=== PATIENT | male | born 1975 | race Caucasian/White ===

== ENCOUNTER 2016-06-06 06:46 | Emergency (ER) | payer OTHER ==
[2016-06-06 07:04] VITALS: TEMP 98; BMI 32.1
[2016-06-06 07:25] LABS: LEUKOCYTES/URINE NEG (NEGATIVE); NITRITE/URINE NEG (NEGATIVE); RBC/URINE 0-2 (0-2); URINE OCCULT BLOOD NEG (NEG/TRACE); WBC/URINE 0-2 (0-2)
[2016-06-06] MEDS ORDERED: ONDANSETRON HCL 4 MG/2 ML VIAL ONE (07:36)
[2016-06-06] MEDS ORDERED: MORPHINE 4 MG/ML INJECTION IV ONE (07:41)
[2016-06-06] MEDS ORDERED: NS 1,000 ML IV ONE ×2 (07:41)
[2016-06-06 07:42] LABS: AUTOMATED BASOPHIL 0.8 % (0-2); AUTOMATED EOSINOPHIL 7.5 % (0-5); AUTOMATED LYMPH 34.7 % (17-44); AUTOMATED MONOCYTE 9.3 % (3-10); AUTOMATED NEUTROPHIL 47.7 % (45-76); MPV 7.8 fL (7.4-10.4)
--- NOTE | 2016-06-06 07:46 | EDPRACDOC ---
- General Information Chief Complaint: Male Urogenital Problems Stated Complaint: KIDNEY PAIN Time Seen by Provider: 06/06/16 07:41 Information Source: Patient Mode Of Arrival: Car Home Medications: Home Medications Diazepam [Valium] 5 mg PO Q6 #10 tablet 06/06/16 Ibuprofen Tablet [Motrin] 800 mg PO TID #30 tab 06/06/16 Mometasone Furoate [Asmanex] 220 mcg IH DAILY 06/06/16 Prednisone [Deltasone, Orasone] 20 mg PO DAILY #12 tab 06/06/16 Ranitidine HCl [Zantac] 300 mg PO DAILY 06/06/16 Trazodone HCl [Desyrel] 50 mg PO QHS 06/06/16 Allergies/Adverse Reactions: Allergies Allergy/AdvReac Type Severity Reaction Status Date / Time codeine Allergy See Verified 06/06/16 07:04 Comments - History of Present Illness Onset: 2 weeks Pain Location: Reports: Right, Flank Pain Radiates To: Reports: None Pain Caused By: Reports: Spontaneous Relevant History: Reports: Urolithiasis (REMOTELY). Denies: Chronic back pain Pain Severity: Reports: Moderate Pain Quality: Reports: Aching, Burning Worsened By: Reports: Nothing Associated Signs and Symptoms: Reports: Nausea. Denies: Abdominal Pain, Dysuria , Vomiting ED Past Medical History - History Reviewed Yes Nurses notes reviewed and agree except as marked - Patient Medical History Respiratory History: Reports: Asthma Psychological History: Denies: Depression Surgical History: Reports: Appendectomy - Social Medical History Smoking Status: Never smoker ETOH: None Substance Abuse: None Lives In: Home EDM Review of Systems - Review of Systems ROS Negative Except as Marked: Yes All systems reviewed and were negative except as marked - Physical Exam Constitutional: Alert, Restless (PACING) Oriented to: Time, Person, Place Last recorded Vital Signs: Last Vital Signs Temp 98 F 06/06/16 06:59 Pulse 77 06/06/16 06:59 Resp 20 06/06/16 06:59 BP 147/101 H 06/06/16 06:59 Pulse Ox 98 06/06/16 06:59 Oxygen Pulse Oxygen Saturation 98 O2 Device Room Air Oxygen Flow Rate Fraction of Inspired Oxygen ( FIO2) - HEENT Head: Normal ( normocephalic) Eye Exam: Normal. negative: Edema, Pale Conjunctiva, Scleral Icterus Oropharynx: Normal. negative: Membranes Dry Neck: Normal - Respiratory/Cardiovascular Respiratory: Normal - CTA Cardiovascular: Normal - GI Auscultation: Normal Palpation: Normal Tenderness: Non tender. negative: Severe, Guarding, Rebound, Rigidity Blanchard's Sign: Negative - Musculoskeletal Back: CVA Tenderness (RIGHT-SIDED). negative: Thoracic Step-off, Lumbar Step- off, Thoracic TTP, Lumbar TTP Extremities: Normal - Integumentary Skin: Normal - Neurologic Memory Impaired: Normal Mood Description: Normal, Appropriate Thought: Coherent Perception: Normal - Results 06/06/16 07:30 06/06/16 07:30 WBC 8.8 xk/uL (3.8-10.8) 06/06/16 07:30 RBC 5.63 xM/uL (4.70-6.10) 06/06/16 07:30 Hgb 15.6 g/dL (14.0-18.0) 06/06/16 07:30 Hct 46.3 % (42-52) 06/06/16 07:30 MCV 82 fL (80-94) 06/06/16 07:30 MCH 27.7 pg (27-32) 06/06/16 07:30 MCHC 33.6 g/dl (33-36) 06/06/16 07:30 RDW 12.4 % (11.5-14.5) 06/06/16 07:30 Plt Count 218 xk/uL (130-400) 06/06/16 07:30 MPV 7.8 fL (7.4-10.4) 06/06/16 07:30 Neut % (Auto) 47.7 % (45-76) 06/06/16 07:30 Lymph % (Auto) 34.7 % (17-44) 06/06/16 07:30 [place] % (Auto) 9.3 % (3-10) 06/06/16 07:30 Eos % (Auto) 7.5 % (0-5) H 06/06/16 07:30 Baso % (Auto) 0.8 % (0-2) 06/06/16 07:30 Absolute Neuts (auto) 4.14 xk/uL (1.7-8.2) 06/06/16 07:30 Absolute Lymphs (auto) 2.99 xk/uL (0.65-4.75) 06/06/16 07:30 Urine Color Pale yellow 06/06/16 06:55 Urine Clarity Clear 06/06/16 06:55 Urine pH 6.0 (5.0-8.0) 06/06/16 06:55 Ur Specific [place] 1.020 (1.003-1.035) 06/06/16 06:55 Urine Protein Neg (NEG/TRACE) 06/06/16 06:55 Urine Glucose (UA) Neg (NEGATIVE) 06/06/16 06:55 Urine Ketones Neg (NEGATIVE) 06/06/16 06:55 Urine Occult Blood Neg (NEG/TRACE) 06/06/16 06:55 Urine Nitrite Neg (NEGATIVE) 06/06/16 06:55 Urine Bilirubin Neg (NEGATIVE) 06/06/16 06:55 Urine Urobilinogen <2.0 MG/DL (0-1) 06/06/16 06:55 Ur Leukocyte Esterase Neg (NEGATIVE) 06/06/16 06:55 Urine RBC 0-2 (0-2) 06/06/16 06:55 Urine WBC 0-2 (0-2) 06/06/16 06:55 Urine Mucus Occ (NEG/OCC) 06/06/16 06:55 Lab Results 06/06/16 06/06/16 07:30 06:55 WBC 8.8 RBC 5.63 Hgb 15.6 Hct 46.3 MCV 82 MCH 27.7 MCHC 33.6 RDW 12.4 Plt Count 218 MPV 7.8 Neut % (Auto) 47.7 Lymph % (Auto) 34.7 [place] % (Auto) 9.3 Eos % (Auto) 7.5 H Baso % (Auto) 0.8 Absolute Neuts (auto) 4.14 Absolute Lymphs (auto) 2.99 Urine Color Pale yellow Urine Clarity Clear Urine pH 6.0 Ur Specific [place] 1.020 Urine Protein Neg Urine Glucose (UA) Neg Urine Ketones Neg Urine Occult Blood Neg Urine Nitrite Neg Urine Bilirubin Neg Urine Urobilinogen <2.0 Ur Leukocyte Esterase Neg Urine RBC 0-2 Urine WBC 0-2 Urine Mucus Occ - Diagnostic Imaging Abdomen Image interpreted by: Radiologist Patient Name: DIANA TEJEDA LOC: ED : 1975 AGE: 41 Order Date:06/06/16 Date of Service:08/18 Report # [id number] Ord Physician: Padmini Beckham MD Exam # [id number] Emergency Physician: Padmini Beckham MD Exam(s): [id number] CT/CT UROGRAM CLINICAL DATA: RIGHT flank pain for 2 weeks. History of kidney stones. EXAM: CT ABDOMEN AND PELVIS WITHOUT CONTRAST TECHNIQUE: Multidetector CT imaging of the abdomen and pelvis was performed following the standard protocol without IV contrast. COMPARISON: None. FINDINGS: Lower chest: No acute findings. Hepatobiliary: No mass visualized on this un-enhanced exam. Hepatic steatosis is suspected. Pancreas: No mass or inflammatory process identified on this un-enhanced exam. Spleen: Within normal limits in size. Adrenals/Urinary Tract: No evidence of urolithiasis or hydronephrosis. No definite mass visualized on this un-enhanced exam. Stomach/Bowel: No evidence of obstruction, inflammatory process, or abnormal fluid collections. Diverticulosis without diverticulitis. Appendix is surgically absent. Vascular/Lymphatic: No pathologically enlarged lymph nodes. No evidence of abdominal aortic aneurysm. Reproductive: No mass or other significant abnormality. Other: None. Musculoskeletal: No suspicious bone lesions identified. Degenerative change lumbar spine. IMPRESSION: No nephro/urolithiasis or obstructive uropathy. Electronically Signed By: Sixto Adrian M.D. On: 06/06/2016 08:17 Electronically Signed By: Sixto Adrian MD Electronically Signed Date/Time: [id number] Dictate Date/Time: 06/06/16 08 Technologist: Jose Guadalupe Perez Transcribed By: Juan Transcribed Date/Time: 06/06/16 0817 - Departure Disposition: Home Condition: Good Final Diagnosis: Acute right flank pain Instructions: Non-pharmacological Pain Management Therapies for Adults (GEN), Abdominal Pain (ED), Back Exercises (ED) Education/Counseling Given To: Patient Education/Counseling Given Regarding: Diagnosis, Treatment, Prognosis Referrals: Pinky East MD [Primary Care Provider] - One Week Prescriptions: Diazepam [Valium] 5 mg PO Q6 #10 tablet Ibuprofen Tablet [Motrin] 800 mg PO TID #30 tab Prednisone [Deltasone, Orasone] 20 mg PO DAILY #12 tab
[2016-06-06 07:57] LABS: BLOOD UREA NITROGEN 17 MG/DL (9-20); CALCIUM 9.1 MG/DL (8.4-10.2); CALCULATED OSMOLALITY 273 MOs/Kg (270-290); CHLORIDE 103 mEq/L (98-107); GLUCOSE 106 MG/DL (70-99); SODIUM LEVEL 141 mEq/L (137-146); TOTAL PROTEIN 7.4 G/DL (6.3-8.2)
[2016-06-06 08:11] VITALS: PULSE 62
--- NOTE | 2016-06-06 08:19 | DIRPT ---
CLINICAL DATA: RIGHT flank pain for 2 weeks. History of kidney stones. EXAM: CT ABDOMEN AND PELVIS WITHOUT CONTRAST TECHNIQUE: Multidetector CT imaging of the abdomen and pelvis was performed following the standard protocol without IV contrast. COMPARISON: None. FINDINGS: Lower chest: No acute findings. Hepatobiliary: No mass visualized on this un-enhanced exam. Hepatic steatosis is suspected. Pancreas: No mass or inflammatory process identified on this un-enhanced exam. Spleen: Within normal limits in size. Adrenals/Urinary Tract: No evidence of urolithiasis or hydronephrosis. No definite mass visualized on this un-enhanced exam. Stomach/Bowel: No evidence of obstruction, inflammatory process, or abnormal fluid collections. Diverticulosis without diverticulitis. Appendix is surgically absent. Vascular/Lymphatic: No pathologically enlarged lymph nodes. No evidence of abdominal aortic aneurysm. Reproductive: No mass or other significant abnormality. Other: None. Musculoskeletal: No suspicious bone lesions identified. Degenerative change lumbar spine. IMPRESSION: No nephro/urolithiasis or obstructive uropathy. Electronically Signed By: Sixto Adrian M.D. On: 06/06/2016 08:17
[2016-06-06 09:07] VITALS: BP 153/91
== END 2016-06-06 09:05 | disposition home or self-care (01) ==
LOC: ED 06:46
DX: R10.9 Unspecified abdominal pain (principal)
CPT/HCPCS: 36415; 74176; 80053; 81001; 85025; 96361; 96374; 99284; J2270; J2405